=== PATIENT | male | born 1950 | race Caucasian/White ===

== ENCOUNTER 2016-03-19 11:34 | Inpatient (IN) | payer OTHER ==
[~2016-03-19] VITALS: Ht 190.5 cm; Wt 157.0 kg
[2016-03-19 16:38] VITALS: BP 126/85
[2016-03-19 16:58] LABS: POINT-OF-CARE METER ID UU14174215
[2016-03-19] MEDS ORDERED: KLONOPIN2 MG PO (17:13)
[2016-03-19] MEDS ORDERED: NEURONTIN300 MG PO (17:16)
[2016-03-19] MEDS ORDERED: MILK OF MAGNESI10 ML PO (17:17)
[2016-03-19] MEDS ORDERED: REMERON30 M2 PO (17:18)
[2016-03-19] MEDS ORDERED: ZOFRAN4 MG PO (17:18)
[2016-03-19] MEDS ORDERED: ACTOS30 MG PO (17:19)
[2016-03-19] MEDS ORDERED: OXYCODONE HCL10 MG PO (17:19)
[2016-03-19] MEDS ORDERED: PERI-COLACE TA1 EACH PO (17:20)
[2016-03-19] MEDS ORDERED: FLOMAX0.4 MG PO (17:20)
[2016-03-19] MEDS ORDERED: LOVENOX40 MG/0.4 SC (17:21)
[2016-03-19] MEDS ORDERED: THERAGRAN1 TABLET PO (17:22)
[2016-03-19 23:55] VITALS: BP 138/63
[2016-03-20 05:41] VITALS: BP 133/60
[2016-03-20 06:30] LABS: HEMATOCRIT 38.1 % (38.0-50.0); MCH 32.2 PG (29.0-34.0); MCHC 33.6 G/DL (30.0-36.0); MEAN PLAT.VOLUME 10.5 uM^3 (9.0-12.4); PLATELET COUNT 237 K/uL (156-360); RBC DIS.WIDTH-CV 13.2 % (11.8-14.6); RBC DIS.WIDTH-SD 46.6 % (39-53); RED BLOOD COUNT 3.97 M/uL (4.00-5.50); WHITE BLOOD COUNT 7.4 K/uL (4.1-10.2)
[2016-03-20 06:45] LABS: ALKALINE PHOSPHATASE 50 IU/L (3-129); ANION GAP 10 MEQ/L (2-14); CHLORIDE 104 MEQ/L (99-109); GFR ESTIMATE (CALCULATED) > 59 mL/min/; GLUCOSE 146 mg/dL (70-99); POTASSIUM 3.8 MEQ/L (3.7-5.4); SAMPLE HEMOLYSIS CHECK 1; SAMPLE ICTERIC CHECK 0; SAMPLE LIPEMIA CHECK 0; SODIUM 141 MEQ/L (136-147); TOTAL BILIRUBIN 0.6 MG/DL (0.0-1.0); UREA NITROGEN (BUN) 15 mg/dL (9-23)
[2016-03-20 06:59] LABS: POINT-OF-CARE METER ID UU14174215
[2016-03-20 11:07] LABS: POINT-OF-CARE METER ID UU14174215
[2016-03-20 15:23] VITALS: BP 138/68
[2016-03-21 05:01] VITALS: BP 137/63
[2016-03-21 15:19] VITALS: BP 126/65
[2016-03-22 04:22] VITALS: BP 146/64
[2016-03-22 15:35] VITALS: BP 137/68
[2016-03-22 16:41] LABS: POINT-OF-CARE METER ID UU14174215
[2016-03-22 21:10] LABS: POINT-OF-CARE METER ID UU13113720
[2016-03-23 05:42] VITALS: BP 139/63
[2016-03-23 07:12] LABS: POINT-OF-CARE METER ID UU14174215; POINT-OF-CARE USER ID AHSSSJB31
[2016-03-23 11:07] LABS: POINT-OF-CARE METER ID UU14174215; POINT-OF-CARE USER ID AHSSSJB31
[2016-03-23 16:38] LABS: POINT-OF-CARE METER ID UU14174215
[2016-03-23 21:12] LABS: POINT-OF-CARE METER ID UU14174215
[2016-03-24 05:38] VITALS: BP 168/70
[2016-03-24 07:29] LABS: POINT-OF-CARE METER ID UU13113720; POINT-OF-CARE USER ID AHSSSJB31
[2016-03-24 11:34] LABS: POINT-OF-CARE METER ID UU13113720; POINT-OF-CARE USER ID AHSSSJB31
[2016-03-24 15:40] VITALS: BP 144/70
[2016-03-24 16:21] LABS: POINT-OF-CARE METER ID UU13113720; POINT-OF-CARE USER ID AHSSSJB31
[2016-03-24 22:14] LABS: POINT-OF-CARE METER ID UU13113720
[2016-03-25 05:38] VITALS: BP 183/84
[2016-03-25 05:55] VITALS: BP 147/68
[2016-03-25 07:20] LABS: POINT-OF-CARE METER ID UU14174215; POINT-OF-CARE USER ID AHSSSJB31
[2016-03-25 12:50] VITALS: BP 160/74
[2016-03-25 13:00] VITALS: BP 160/74
[2016-03-25 13:05] LABS: POINT-OF-CARE METER ID UU14174215; POINT-OF-CARE USER ID AHSSSJB31
[2016-03-25 15:39] VITALS: BP 136/75
[2016-03-25 16:17] LABS: POINT-OF-CARE METER ID UU14174215
[2016-03-25 21:10] LABS: POINT-OF-CARE METER ID UU14174215
[2016-03-26 05:26] VITALS: BP 176/98
[2016-03-26 06:56] LABS: POINT-OF-CARE METER ID UU13113720
[2016-03-26 07:18] VITALS: BP 179/86
[2016-03-26 09:00] VITALS: BP 136/76
[2016-03-26 11:37] LABS: POINT-OF-CARE METER ID UU14174215
[2016-03-26 15:12] VITALS: BP 158/74
[2016-03-26 16:18] LABS: POINT-OF-CARE METER ID UU14174215
[2016-03-26 21:16] LABS: POINT-OF-CARE METER ID UU13113720; POINT-OF-CARE USER ID 610211320
[2016-03-27 05:37] VITALS: BP 175/76
[2016-03-27 07:18] LABS: POINT-OF-CARE METER ID UU14174215; POINT-OF-CARE USER ID AHSSSJB31
[2016-03-27 11:25] LABS: POINT-OF-CARE METER ID UU14174215; POINT-OF-CARE USER ID AHSSSJB31
[2016-03-27 15:27] VITALS: BP 146/75
[2016-03-27 16:19] LABS: POINT-OF-CARE METER ID UU14174215
[2016-03-27 21:37] LABS: POINT-OF-CARE METER ID UU14174215
[2016-03-28 04:26] VITALS: BP 170/87
[2016-03-28 07:02] VITALS: BP 137/65
[2016-03-28 07:41] LABS: POINT-OF-CARE METER ID UU13113720; POINT-OF-CARE USER ID AHSSSJB31
[2016-03-28 12:18] LABS: POINT-OF-CARE METER ID UU14174215; POINT-OF-CARE USER ID AHSSSJB31
[2016-03-28 15:52] VITALS: BP 149/70
[2016-03-29 05:35] VITALS: BP 154/76
[2016-03-29 07:39] LABS: POINT-OF-CARE METER ID UU14174215; POINT-OF-CARE USER ID AHSSSJB31
[2016-03-29 16:22] VITALS: BP 158/76
[2016-03-29 21:12] LABS: POINT-OF-CARE METER ID UU14174215
[2016-03-30 06:10] VITALS: BP 146/71
[2016-03-30 07:06] LABS: POINT-OF-CARE METER ID UU13113720; POINT-OF-CARE USER ID ENVGAF
[2016-03-31 05:49] VITALS: BP 110/58
[2016-03-31 06:59] LABS: POINT-OF-CARE METER ID UU13113720; POINT-OF-CARE USER ID ENVGAF
[2016-03-31 18:16] VITALS: BP 145/76
[2016-04-01 05:11] VITALS: BP 157/72
[2016-04-01 07:30] LABS: POINT-OF-CARE METER ID UU14174215; POINT-OF-CARE USER ID AHSSSJB31
[2016-04-01 15:58] VITALS: BP 170/76
[2016-04-01 16:52] VITALS: BP 152/70
[2016-04-02 03:44] VITALS: BP 130/66
[2016-04-02 07:44] LABS: POINT-OF-CARE METER ID UU14174215
[2016-04-02 15:24] VITALS: BP 146/67
[2016-04-03 05:00] VITALS: BP 133/68
[2016-04-03 07:31] LABS: ALKALINE PHOSPHATASE 60 IU/L (3-129); ANION GAP 9 MEQ/L (2-14); CHLORIDE 107 MEQ/L (99-109); GFR ESTIMATE (CALCULATED) > 59 mL/min/; GLUCOSE 109 mg/dL (70-99); SAMPLE HEMOLYSIS CHECK 0; SAMPLE ICTERIC CHECK 0; SAMPLE LIPEMIA CHECK 0; SODIUM 143 MEQ/L (136-147); TOTAL BILIRUBIN 0.4 MG/DL (0.0-1.0); UREA NITROGEN (BUN) 13 mg/dL (9-23)
[2016-04-03 07:38] LABS: POINT-OF-CARE METER ID UU14174215; POINT-OF-CARE USER ID AHSSSJB31
[2016-04-03 08:13] LABS: HEMATOCRIT 43.1 % (38.0-50.0); MCH 30.9 PG (29.0-34.0); MCHC 32.7 G/DL (30.0-36.0); MCV 94.5 FL (86-99); MEAN PLAT.VOLUME 10.2 uM^3 (9.0-12.4); PLATELET COUNT 291 K/uL (156-360); RBC DIS.WIDTH-CV 13.2 % (11.8-14.6); RBC DIS.WIDTH-SD 43.9 % (39-53); RED BLOOD COUNT 4.56 M/uL (4.00-5.50); WHITE BLOOD COUNT 5.5 K/uL (4.1-10.2)
[2016-04-03 15:12] VITALS: BP 157/82
[2016-04-04 05:41] VITALS: BP 176/78
[2016-04-04 05:44] VITALS: BP 156/76
[2016-04-04 06:55] LABS: POINT-OF-CARE METER ID UU14174215; POINT-OF-CARE USER ID ENVGAF
[2016-04-04] MEDS ORDERED: KLONOPIN2 MG PO (07:55)
[2016-04-04] MEDS ORDERED: POLYETHYLENE GL17 GM PO (07:55)
[2016-04-04] MEDS ORDERED: LOVENOX40 MG/0.4 SC (07:55)
[2016-04-04] MEDS ORDERED: LISINOPRIL5 MG PO (07:55)
[2016-04-04] MEDS ORDERED: ZOLPIDEM TARTRAT5 MG PO (07:55)
== END 2016-04-04 11:23 | disposition home health service (06) | DRG 560 ==
LOC: 3WEST 11:34
PROVIDERS: Physical Medicine & Rehabilitation Pain Medicine
PROC: F07M0ZZ Range of Motion and Joint Mobility Treatment of Musculoskeletal System - Whole Body (ICD-10-PCS; principal; 2016-03-19)
DX: Z47.81 Encounter for orthopedic aftercare following surgical amputation (principal); Z89.512 Acquired absence of left leg below knee; R26.2 Difficulty in walking, not elsewhere classified; D62 Acute posthemorrhagic anemia; Z68.41 Body mass index [BMI] 40.0-44.9, adult; I10 Essential (primary) hypertension; E11.9 Type 2 diabetes mellitus without complications; E83.51 Hypocalcemia; G47.33 Obstructive sleep apnea (adult) (pediatric); G47.00 Insomnia, unspecified; M19.90 Unspecified osteoarthritis, unspecified site; E66.9 Obesity, unspecified
CPT/HCPCS: 71010; 71020; 80053; 82948; 85027; 94799; 97110 GO; 97530 GP; J1650; J1815